=== PATIENT | female | born 1990 | race Caucasian/White ===

== ENCOUNTER 2025-02-08 08:38 | Inpatient (IN) | payer OTHER ==
[2025-02-08 09:56] LABS: HEMOGLOBIN 11.9 g/dL (11.2-15.7)
[2025-02-08 09:58] LABS: ABSOLUTE IMMATURE GRANULOCYTES 0.07 x10^3/uL (0.0-0.031); BASOPHILS # 0.03 x10^3/uL (0.01-0.08); EOSINOPHIL % 0.6 % (0.7-5.8); EOSINOPHILS # 0.06 x10^3/uL (0.04-0.36); HEMATOCRIT 37.3 % (34.1-44.9); MCHC 31.9 g/dl (32.2-35.5); MEAN CELL VOLUME 86.5 fl (79.4-94.8); MEAN PLT VOLUME 12.3 fl (9.4-12.3); MONOCYTE # 0.67 x10^3/uL (0.24-0.86); MONOCYTE % 7.2 % (4.7-12.5); PLATELET COUNT 122 x10^3/uL (182-369); RDW 13.8 % (12.1-16.8)
[2025-02-08 10:04] LABS: INR 0.94 (0.83-1.09); PROTHROMBIN TIME (PATIENT) 10.3 SEC (9.7-13.0)
[2025-02-08 10:07] LABS: ACTIVATED PTT 23.8 SECONDS (25.2-36.5)
[2025-02-08 10:09] VITALS: BMI 26.3
[2025-02-08] MEDS: ELECTROLYTE-148 SOLN 1,000 ML IV SCH (10:30)
[2025-02-08 10:40] LABS: POTASSIUM 3.9 mmol/L (3.5-5.1)
[2025-02-08 10:41] LABS: BLOOD UREA NITROGEN 7.3 mg/dL (7-18); CALCIUM 8.8 mg/dL (8.5-10.1)
[2025-02-08 10:45] LABS: CREATININE 0.5 mg/dL (0.55-1.3)
[2025-02-08] MEDS ORDERED: FENTANYL/BUPIVACAINE/NS/PF - PCEA - 50 ML DISP.SYRIN EP ONE (10:51)
[2025-02-08] MEDS: FENTANYL/BUPIVACAINE/NS/PF - PCEA - 50 ML DISP.SYRIN EP SCH (11:20)
[2025-02-08] MEDS ORDERED: NALOXONE HCL 0.4 MG/ML VIAL IVPUSH PRN (11:45)
[2025-02-08] MEDS ORDERED: OXYTOCIN 30 UNITS in 0.9% NS 30 UNIT/500 ML INFUS.BAG IVPB ONE (11:48)
[2025-02-08] MEDS: OXYTOCIN 30 UNITS in 0.9% NS 30 UNIT/500 ML INFUS.BAG IVPB SCH (12:00)
[2025-02-08] MEDS ORDERED: OXYTOCIN 20 UNITS in 0.9% NS 20 UNIT/1,000 ML INFUS.BAG IV ONE (15:40)
[2025-02-08] MEDS ORDERED: LIDOCAINE HCL 1% PRESERVATIVE FREE - 30ML VIAL ONE (15:56)
[2025-02-08] MEDS: OXYTOCIN 20 UNITS in 0.9% NS 20 UNIT/1,000 ML INFUS.BAG IV SCH (16:15)
[2025-02-08] MEDS ORDERED: METHYLERGONOVINE MALEATE 0.2 MG/1 ML AMP IM PRN (16:29)
[2025-02-08] MEDS ORDERED: WITCH HAZEL 50% (TUCKS) 40 PAD/JAR PAD TP PRN (16:29)
[2025-02-08] MEDS ORDERED: BISACODYL 10 MG SUPP.RECT RC PRN (16:29)
[2025-02-08 16:32] LABS: CORD BASE EXCESS -1.9 mmol/L (0-2); CORD HCO3 21.2 mmHg (20-29); CORD PCO2 32.2 mmHg (30-78); CORD pH 7.436 (7.14-7.44)
[2025-02-08 16:33] LABS: CORD HCO3 23.1 mmHg (20-29); CORD PCO2 37.2 mmHg (30-78); CORD pH 7.411 (7.14-7.44)
[2025-02-08] MEDS ORDERED: IBUPROFEN 600 MG TABLET (FP) PO ONE (18:54)
[2025-02-08] MEDS: IBUPROFEN 600 MG TABLET (FP) PO PRN (18:55)
[2025-02-09] MEDS: ACETAMINOPHEN 325 MG TABLET (FP) PO PRN (05:31)
[2025-02-09] MEDS: BENZOCAINE 28 GM HEMORRHOIDAL OINTMENT TP PRN (05:32)
[2025-02-09] MEDS: BENZOCAINE 20% 57 GM BOTTLE TP PRN (05:33)
[2025-02-09 07:47] LABS: ABSOLUTE IMMATURE GRANULOCYTES 0.07 x10^3/uL (0.0-0.031); BASOPHILS # 0.04 x10^3/uL (0.01-0.08); EOSINOPHIL % 0.9 % (0.7-5.8); EOSINOPHILS # 0.09 x10^3/uL (0.04-0.36); HEMATOCRIT 36.4 % (34.1-44.9); HEMOGLOBIN 11.3 g/dL (11.2-15.7); MEAN CELL VOLUME 88.3 fl (79.4-94.8); MEAN PLT VOLUME 12.5 fl (9.4-12.3); MONOCYTE # 0.51 x10^3/uL (0.24-0.86); MONOCYTE % 5.4 % (4.7-12.5); PLATELET COUNT 140 x10^3/uL (182-369); RDW 13.9 % (12.1-16.8)
[2025-02-09] MEDS ORDERED: SENNOSIDES/DOCUSATE COMBO (SENNA PLUS) TABLET (UD) PO PRN (22:00)
[2025-02-10 08:37] VITALS: BP 102/59; PULSE 60; RESP 18; TEMP 98
== END 2025-02-10 10:42 | disposition home or self-care (01) | DRG 560 ==
LOC: JLDR 08:38 → J3W 19:50
PROVIDERS: ADMIT Obstetrics & Gynecology Obstetrics; ATTEND Obstetrics & Gynecology Obstetrics
PROC: 10E0XZZ Delivery of Products of Conception, External Approach (ICD-10-PCS; principal; 2025-02-08)
PROC: 0HQ9XZZ Repair Perineum Skin, External Approach (ICD-10-PCS; 2025-02-08)
PROC: 0W8NXZZ Division of Female Perineum, External Approach (ICD-10-PCS; 2025-02-08)
DX: O70.0 First degree perineal laceration during delivery (principal); Z3A.39 39 weeks gestation of pregnancy; Z37.0 Single live birth
CPT/HCPCS: 36415; 36600; 59409; 80048; 82803; 85025; 85610; 85730; 86780; 86850; 86900; 86901